=== PATIENT | male | born 1985 | race African-American/Black ===

== ENCOUNTER 2021-08-01 05:56 | Inpatient (IN) | payer MEDICAID ==
[~2021-08-01] VITALS: Ht 188 cm; Wt 35.8 kg
[2021-08-01] MEDS ORDERED: SODIUM CHLORIDE 0.9% 1,000 ML IV ONE (06:15)
[2021-08-01] MEDS ORDERED: TETANUS, DIPHTHERIA, PERTUSSIS VAC/PF 0.5ML (>10YR OLD) IM ONE (06:15)
[2021-08-01] MEDS ORDERED: CEFAZOLIN 1000MG PREMIX 50 ML IV ONE (06:15)
[2021-08-01] MEDS ORDERED: MORPHINE SULFATE 4 MG/ML CPJ (NOT FOR IM USE) IV ONE ×3 (06:15→11:15)
[2021-08-01 06:41] LABS: BASOPHILS % 0.5 % (0.0-2.0); CHLORIDE 108 mEq/L (98-107); EOSINOPHILS % 1.2 % (0.0-5.0); HEMATOCRIT. 42.3 % (42.0-52.0); HEMOGLOBIN. 14.1 g/dL (14.0-18.0); LYMPHOCYTES % 18.7 % (20.0-50.0); MEAN CORPUSCULAR HEMOGLOBIN 30.5 pg (28.0-32.0); MEAN CORPUSCULAR VOLUME 91.6 fL (80.0-94.0); MONOCYTES % 5.8 % (2.0-8.0); NEUTROPHILS % 73.8 % (40.0-76.0); PLATELET 253 x1000/uL (130-400); RED BLOOD CELL COUNT 4.62 mill/uL (4.7-6.1); RED CELL DISTRIBUTION WIDTH 13.4 % (11.6-14.6)
[2021-08-01] MEDS ORDERED: GENTAMICIN 100MG PREMIX 100 ML IV ONE (07:45)
[2021-08-01 07:57] LABS: BASOPHILS % 0.4 % (0.0-2.0); EOSINOPHILS % 0.2 % (0.0-5.0); HEMATOCRIT. 41.3 % (42.0-52.0); HEMOGLOBIN. 13.5 g/dL (14.0-18.0); LYMPHOCYTES % 12.6 % (20.0-50.0); MEAN CORPUSCULAR HEMOGLOBIN 29.8 pg (28.0-32.0); MEAN CORPUSCULAR VOLUME 91.2 fL (80.0-94.0); MEAN PLATELET VOLUME 8.6 fl (7.4-10.4); MONOCYTES % 5.9 % (2.0-8.0); NEUTROPHILS % 80.9 % (40.0-76.0); PLATELET 230 x1000/uL (130-400); RED BLOOD CELL COUNT 4.52 mill/uL (4.7-6.1); RED CELL DISTRIBUTION WIDTH 13.4 % (11.6-14.6)
[2021-08-01] MEDS ORDERED: GENTAMICIN SULFATE 300 MG in SODIUM CHLORIDE 0.9% 100 ML IV SCH (08:15)
[2021-08-01] MEDS ORDERED: DOCUSATE SODIUM 100MG CAPSULE PO PRN (12:00)
[2021-08-01] MEDS ORDERED: CLONIDINE 0.1MG TABLET PO PRN (12:00)
[2021-08-01] MEDS ORDERED: MAGNESIUM/ALUMINUM HYDROXIDE/SIMETHICONE 30ML UDC PO PRN (12:00)
[2021-08-01] MEDS ORDERED: ONDANSETRON HCL 4MG/2ML INJ IV PRN (12:00)
[2021-08-01] MEDS ORDERED: ACETAMINOPHEN 325MG TABLET PO PRN ×2 (12:00)
[2021-08-01] MEDS ORDERED: GUAIFENESIN 200MG/10ML SUGAR FREE UDC PO PRN (12:00)
[2021-08-01] MEDS ORDERED: ZOLPIDEM TARTRATE 5MG TABLET PO PRN (12:00)
[2021-08-01] MEDS ORDERED: NITROGLYCERIN 0.4MG TABLET SL SL PRN (12:00)
[2021-08-01] MEDS ORDERED: IPRATROPIUM/ALBUTEROL 0.5-3(2.5)MG/3ML NEB NEB PRN (12:00)
[2021-08-01] MEDS ORDERED: POTASSIUM CHLORIDE 20MEQ TABLET SR PO NR (13:00)
[2021-08-01] MEDS: PIPERACILLIN/TAZ 3.375G PREMIX 50 ML IV SCH (13:09)
[2021-08-01] MEDS: ENOXAPARIN 40MG/0.4ML SYR SUBCUT SCH (13:09)
[2021-08-01] MEDS: VANCOMYCIN 1500MG in DEXTROSE 5% WATER 250ML IV SCH (14:00)
[2021-08-01] MEDS: MORPHINE SULFATE 2 MG/ML CPJ (NOT FOR IM USE) IV PRN ×2 (15:55→23:43)
[2021-08-01] MEDS ORDERED: NALOXONE HCL 0.4MG/ML VIAL IV PRN (17:00)
[2021-08-01] MEDS: KETOROLAC 15MG/ML VIAL IV PRN (17:40)
[2021-08-01 19:52] LABS: *AMPHETAMINES SCREEN URINE NEGATIVE (NEGATIVE); *BARBITURATES SCREEN URINE NEGATIVE (NEGATIVE)
[2021-08-01 19:53] LABS: *BENZODIAZEPINES SCREEN URINE NEGATIVE (NEGATIVE); *COCAINE SCREEN URINE NEGATIVE (NEGATIVE); CANNABINOID URINE SCREEN PRESUMTIVE POSITIVE (NEGATIVE); METHADONE URINE SCREEN NEGATIVE (NEGATIVE); OPIATES URINE SCREEN PRESUMTIVE POSITIVE (NEGATIVE); PHENCYCLIDINE URINE SCREEN NEGATIVE (NEGATIVE)
[2021-08-01] MEDS: FAMOTIDINE 20MG TABLET PO SCH (21:00)
[2021-08-02] MEDS: PIPERACILLIN/TAZ 3.375G PREMIX 50 ML IV SCH
[2021-08-02] MEDS ORDERED: VANCOMYCIN 1250MG in DEXTROSE 5% WATER 250ML IV SCH (05:00)
[2021-08-02] MEDS: MORPHINE SULFATE 2 MG/ML CPJ (NOT FOR IM USE) IV PRN ×2 (06:12→16:06)
[2021-08-02 08:00] VITALS: BP 127/65
[2021-08-02 08:49] LABS: BASOPHILS % 0.3 % (0.0-2.0); EOSINOPHILS % 0.6 % (0.0-5.0); HEMATOCRIT. 42.7 % (42.0-52.0); HEMOGLOBIN. 14.3 g/dL (14.0-18.0); LYMPHOCYTES % 14.5 % (20.0-50.0); MEAN CORPUSCULAR HEMOGLOBIN 30.4 pg (28.0-32.0); MEAN CORPUSCULAR VOLUME 90.7 fL (80.0-94.0); MEAN PLATELET VOLUME 9.4 fl (7.4-10.4); MONOCYTES % 13.9 % (2.0-8.0); NEUTROPHILS % 70.7 % (40.0-76.0); PLATELET 237 x1000/uL (130-400); RED BLOOD CELL COUNT 4.71 mill/uL (4.7-6.1); RED CELL DISTRIBUTION WIDTH 13.2 % (11.6-14.6)
[2021-08-02 09:02] LABS: CHLORIDE 106 mEq/L (98-107)
[2021-08-02 09:07] LABS: PHOSPHORUS 2.3 mg/dL (2.5-4.9)
[2021-08-02] MEDS: PIPERACILLIN/TAZOBACTAM 3.375G in DEXT 5% WATER 50ML IV SCH ×2 (09:30→14:51)
[2021-08-02] MEDS: FAMOTIDINE 20MG TABLET PO SCH ×2 (09:30→21:05)
[2021-08-02] MEDS: KETOROLAC 15MG/ML VIAL IV PRN ×2 (09:30→21:04)
[2021-08-02 12:00] VITALS: BP 96/58
[2021-08-02] MEDS: ENOXAPARIN 40MG/0.4ML SYR SUBCUT SCH (14:51)
[2021-08-02 15:28] VITALS: BP 127/65
[2021-08-02 16:05] VITALS: BP 118/70
[2021-08-02 20:00] VITALS: BP 116/70
[2021-08-02] MEDS: VANCOMYCIN 1250MG in DEXTROSE 5% WATER 250ML IV SCH (21:04)
[2021-08-03] VITALS (7 sets, daily range): BP systolic 94–118; BP diastolic 65–82
[2021-08-03] MEDS: PIPERACILLIN/TAZOBACTAM 3.375G in DEXT 5% WATER 50ML IV SCH ×3 (00:08→15:17)
[2021-08-03] MEDS: KETOROLAC 15MG/ML VIAL IV PRN ×3 (06:40→21:55)
[2021-08-03 07:06] LABS: CHLORIDE 103 mEq/L (98-107)
[2021-08-03] MEDS: VANCOMYCIN 1250MG in DEXTROSE 5% WATER 250ML IV SCH ×2 (09:05→21:30)
[2021-08-03] MEDS: FAMOTIDINE 20MG TABLET PO SCH ×2 (09:05→20:28)
[2021-08-03] MEDS: ENOXAPARIN 40MG/0.4ML SYR SUBCUT SCH (14:15)
[2021-08-04] VITALS: BP 114/55
[2021-08-04] MEDS: PIPERACILLIN/TAZOBACTAM 3.375G in DEXT 5% WATER 50ML IV SCH ×3 (00:27→08:41)
[2021-08-04 04:00] VITALS: BP 104/63
[2021-08-04 08:00] VITALS: BP 110/57
[2021-08-04] MEDS: FAMOTIDINE 20MG TABLET PO SCH (08:41)
[2021-08-04] MEDS: VANCOMYCIN 1250MG in DEXTROSE 5% WATER 250ML IV SCH (08:55)
[2021-08-04 11:30] VITALS: BP 110/57
== END 2021-08-04 13:32 | disposition home or self-care (01) | DRG 342 ==
LOC: ER 05:56 → MICUSO 08:48 → 6EST 08-02 04:30
PROVIDERS: ADMIT Internal Medicine; ATTEND Internal Medicine
DX: S92.311A Displaced fracture of first metatarsal bone, right foot, initial encounter for closed fracture (principal); S91.331A Puncture wound without foreign body, right foot, initial encounter; W34.00XA Accidental discharge from unspecified firearms or gun, initial encounter; E87.6 Hypokalemia; F10.129 Alcohol abuse with intoxication, unspecified; Y93.89 Activity, other specified; Y92.89 Other specified places as the place of occurrence of the external cause; Y99.8 Other external cause status
CPT/HCPCS: 36415; 73630; 80048; 80053; 80202; 80305; 80320; 82962; 83735; 84100; 85025; 86850; 86900; 90715; 93970; 97116; 97162; 97166; 99291; J0690; J1580; J1650; J1885; J2270; J2543; J3370; J7030; J7040; J7050; J7060; G0480